=== PATIENT | male | born 1960 | race Caucasian/White ===

== ENCOUNTER 2019-10-26 16:37 | Emergency (ER) | payer OTHER ==
[2019-10-26 16:48] VITALS: PULSE 85
[2019-10-26] MEDS ORDERED: LIDOCAINE 1% INJ 10MG/ML (20 ML MDV) SQ ONE (17:02)
[2019-10-26] MEDS ORDERED: ceFAZolin 1,000 MG VIAL (IM USE) IM STA (17:02)
[2019-10-26] MEDS ORDERED: DIPH,PERTUS(ACELL)TETVAC-LF 0.5 ML VIAL IM ONE (17:02)
[2019-10-26 17:08] VITALS: BP 147/86; RESP 17; TEMP 98.3
--- NOTE | 2019-10-26 17:27 | XR ---
EXAMINATION TYPE: XR finger RT DATE OF EXAM: 10/26/2019 COMPARISON: NONE HISTORY: Amputation. Trauma TECHNIQUE: 3 views FINDINGS: There is amputation deformity of the right index finger at the level of the mid shaft of th e distal phalanx. There is no definite sign of a foreign body. IMPRESSION: Amputation deformity of the index finger as above.
[2019-10-26] MEDS ORDERED: HYDROmorphone 0.5 MG/0.5 ML SYRINGE IM STA (17:47)
[2019-10-26] MEDS ORDERED: CEPHALEXIN 500MG STARTER PACK 4 CAP BTL PO STA (18:32)
--- NOTE | 2019-10-26 18:36 | ED ---
General Adult HPI - General Chief complaint: Trauma Stated complaint: finger injury Time Seen by Provider: 10/26/19 16:54 Source: patient Mode of arrival: EMS Limitations: no limitations - History of Present Illness Initial comments: 59yo male presenting today for cc of right index finger tip amputation patient states when sailing earlier today around 2:30-3PM his finger got caught and it was pulled off. He states he is able to collect the fingertip however to 2 hours to get the sample and and presents emergency department for evaluation. He states he put the finer on ice. Patient states that he was able to control bleeding shortly after injury. He states that there is pain in the finger but he is still able to move and bend the digit. Admits to digit swelling, denies hand pain. Admits to small laceration of the middle finger of the right hand. Patient denies injury to other extremities and denies right wrist/elbow or shoulder pain. Patient has no additional complaints. Upon arrival he appears well there is no signs of acute distress. Unsure of last tetanus. - Related Data Home Medications Medication Instructions Recorded Confirmed Allopurinol [Zyloprim] 100 mg PO DAILY 10/26/19 10/26/19 Vit D3/Folic Acid/B2/B6/B12 1 tab PO DAILY 10/26/19 10/26/19 [Folgard Tablet] Previous Rx's Medication Instructions Recorded Cephalexin [Keflex] 500 mg PO Q6HR 10 Days #40 cap 10/26/19 HYDROcodone/APAP 5-325MG [Keller 1 tab PO Q4HR PRN 3 Days #18 tab 10/26/19 5-325] Allergies Allergy/AdvReac Type Severity Reaction Status Date / Time Penicillins Allergy Rash/Hives Verified 10/26/19 16:48 Review of Systems ROS Statement: Those systems with pertinent positive or pertinent negative responses have been documented in the HPI. ROS Other: All systems not noted in ROS Statement are negative. Past Medical History Additional Past Medical History / Comment(s): gout History of Any Multi-Drug Resistant Organisms: None Reported Additional Past Surgical History / Comment(s): abdominal surgery as a kid Past Psychological History: No Psychological Hx Reported Smoking Status: Former smoker Past Alcohol Use History: Occasional Past Drug Use History: None Reported General Exam - General Exam Comments Initial Comments: General: The patient is awake and alert, in no distress Eye: +3 mm pupils are equal, round and reactive to light, extra-ocular movements are intact. No nystagmus. There is normal conjunctiva bilaterally. No signs of icterus. Cardiovascular: There is a regular rate and rhythm. No murmur, rub or gallop is appreciated. Respiratory: Lungs are clear to auscultation, respirations are non-labored, breath sounds are equal. No wheezes, stridor, rales, or rhonchi. Musculoskeletal: No pain to palpation of the right shoulder, elbow and wrist. No pain to palpation of the hand. Patient has full ROM at the MCP, PIP and DIP joint of the right index finger that is affected, there is obvious distal amputation including entire finger nail of the right index finger. Patient has no shards of bone protruding through the soft tissues of the amputated aspect. Strength 5/5 the the joints discussed. There is no forced flexed or extended positioning of the affected digits nor other digits of the right hand. Full ROM at the MCP DIP and PIP joints of the right index that has a small laceration just distal to the PIP joint 1cm triangular shape, superficial skin avulsion rather than deep laceration. Sensation intact of the remaining digit. Radial pulses equal bilaterally 2+. Neurological: A&O x 3. CN II-XII intact grossly, There are no obvious motor or sensory deficits. Coordination appears grossly intact. Speech is normal. Skin: Skin is warm and dry and no rashes or lesions are noted. Psychiatric: Cooperative, appropriate mood & affect, normal judgment. Limitations: no limitations Course Vital Signs 10/26/19 10/26/19 10/26/19 16:38 17:06 19:13 Temperature 99.2 F 98.3 F Pulse Rate 85 Respiratory 17 Rate Blood Pressure 147/86 Blood Pressure 147/86 [Left Arm] O2 Sat by Pulse 97 Oximetry Medical Decision Making - Medical Decision Making 59yo male presenting for partial amputation of the right index finger. Amputated distal to the DIP joint. Patient has range of motion at the joint. There is no obvious tendon injury however this cannot be excluded that there is a occult tendon injury. Patient is neurovascularly intact. Unable to reattach the patient brought in as it was devitalized. After verbal consent. Patient finger was extensively irrigated wtih 1L of fluids after a digital block performed with 1% lidocaine. Patient tolerated procedure well. Bacitracin was applied and a nonstick/thick bandage as directed by orthopedic PA consultant technology Victor Manuel Aguirre who is covering our orthopedic service. Patient was educated on the high risk of infection with open fractures, and importance of very timely f/u with orthopedidc hand. He states he is not from town and prefers to find a surgeon near his city [facility]. He was contacting friends that are physicians while I was in the room to help arrange timely f/u. I discussed the patient is unable to get an appointment at the orthopedic surgeon near his home town he should keep his follow-up appointment that was scheduled with our service for Monday. Patient is agreeable to this care plan and discharge. wound care was discussed at [facility]. She was given IM antibiotics pain medications in the emergency department he did have a ride home and he was also provided outpatient prescription for Keflex. Patient case discussed with Mateo chavez who is agreeable to care plan and discharge. Disposition Clinical Impression: Partial traumatic amputation of finger through phalanx, Laceration of middle finger Disposition: HOME SELF-CARE Condition: Good Instructions (If sedation given, give patient instructions): Finger Amputation (ED) Additional Instructions: Please use medication as discussed. Please follow-up orthopedic hand surgery on MONDAY, ensure you call to schedule an appointment as soon as possible--our orthopedic team [facility] is happy to follow- up on Monday if youre unable to obtain an appointment with an orthopedic surgery in your home town. if there is increasing pain/redness, or decreased ROM, fevers, or drainage you must return to the nearest ER immediately. Please return to emergency room if the symptoms increase or worsen or for any other concerns. Prescriptions: Cephalexin [Keflex] 500 mg PO Q6HR 10 Days #40 cap HYDROcodone/APAP 5-325MG [Keller 5-325] 1 tab PO Q4HR PRN 3 Days #18 tab PRN Reason: Pain Is patient prescribed a controlled substance at d/c from ED?: No Referrals: None,Stated [Primary Care Provider] - 1-2 days Nino Gray DO [Doctor of Osteopathic Medicine] - 1-2 days Time of Disposition: 18:36
== END 2019-10-26 19:20 | disposition home or self-care (01) ==
LOC: EC 16:37
DX: S68.120A Partial traumatic metacarpophalangeal amputation of right index finger, initial encounter (principal); S61.212A Laceration without foreign body of right middle finger without damage to nail, initial encounter; Z23 Encounter for immunization; Z87.891 Personal history of nicotine dependence; Z88.0 Allergy status to penicillin; W23.0XXA Caught, crushed, jammed, or pinched between moving objects, initial encounter
CPT/HCPCS: 73140; 90715; 99283; 64450; 90471; 96372 ×2; J0690; J2001; J1170